=== PATIENT | female | born 1985 | race Caucasian/White ===

== ENCOUNTER 2017-01-29 21:32 | Emergency (ER) | payer OTHER | END 2017-01-29 22:38 | disposition home or self-care (01) | LOC: FER 21:32 | DX: L50.0 Allergic urticaria (principal); T43.225A Adverse effect of selective serotonin reuptake inhibitors, initial encounter; Z88.2 Allergy status to sulfonamides | CPT/HCPCS: J2930 ==

== ENCOUNTER 2021-11-19 12:06 | Emergency (ER) | payer OTHER ==
[~2021-11-19 12:06] MED LIST: BACLOFEN 10MG T10 MG PO; NAPROXEN500 MG PO; OS-CAL500 MG PO
[2021-11-19 13:26] LABS: BASOPHIL 0.3 % (0-2); EOSINOPHIL 2.3 % (0-5); HCT 35.5 % (37.0-47.0); LYMPHOCYTE 15.5 % (15-48); MCH 28.4 pg (25.0-31.0); MCHC 33.8 g/dL (32.0-36.0); MCV 83.9 fL (78.0-100.0); MPV 8.9 fL (6.0-9.5); NEUTROPHIL 76.3 % (41-80); NRBC 0; PLT 269 K/uL (150-400); RBC 4.23 M/uL (4.20-5.40); RDW 13.8 % (11.5-14.0); WBC 11.5 K/uL (4.0-10.5)
[2021-11-19 13:28] LABS: BILIRUBIN NEGATIVE (NEGATIVE); BLOOD NEGATIVE Ery/uL (NEGATIVE); CLARITY CLEAR (CLEAR); COLOR YELLOW (YELLOW); GLUCOSE (U) NORMAL (NORMAL); LEUKOCYTES NEGATIVE Leu/uL (NEGATIVE); NITRITE NEGATIVE (NEGATIVE); PROTEIN NEGATIVE (NEGATIVE); UROBILINOGEN 0.2 mg/dL (0.2-1.0)
[2021-11-19 13:49] LABS: ALBUMIN 2.7 g/dL (3.4-5.0); BILIRUBIN - TOTAL 0.2 mg/dL (0.2-1.0); BUN/CREAT RATIO (CALC) 10.9 RATIO; CREATININE 0.55 mg/dL (0.51-0.95); GLOBULIN (CALCULATION) 4.1 g/dL; TOTAL PROTEIN 6.8 g/dL (6.4-8.2)
== END 2021-11-19 13:26 | disposition left against medical advice (07) ==
LOC: FER 12:06
PROVIDERS: Emergency Medicine
DX: O99.891 Other specified diseases and conditions complicating pregnancy (principal); R10.30 Lower abdominal pain, unspecified; Z3A.18 18 weeks gestation of pregnancy; Z53.29 Procedure and treatment not carried out because of patient's decision for other reasons; Z28.310 Unvaccinated for COVID-19
CPT/HCPCS: 36415; 80053; 81003; 82150; 83690; 85025; 99281